=== PATIENT | female | born 1985 | race African-American/Black ===

== ENCOUNTER 2018-06-29 16:44 | Emergency (ER) | payer OTHER ==
[~2018-06-29] VITALS: Ht 157.5 cm; Wt 99.8 kg
[2018-06-29 17:02] LABS: URINE BILIRUBIN NEGATIVE (Negative); URINE BLOOD TRACE (Negative); URINE CLARITY CLEAR; URINE COLOR YELLOW; URINE GLUCOSE-RANDOM* NEGATIVE (Negative); URINE KETONES NEGATIVE (Negative); URINE LEUKOCYTES-REFLEX NEGATIVE (Negative); URINE NITRITE-REFLEX NEGATIVE (Negative); URINE PROTEIN (DIPSTICK) NEGATIVE (Negative); URINE SPECIFIC GRAVITY >= 1.030 (1.005-1.035); URINE UROBILINOGEN 0.2 E.U./dl (0.2-1.0)
[2018-06-29 18:20] LABS: ABSOLUTE NEUTROPHILS 3.6 thou/uL (1.4-8.2); BASOPHILS 1.3 % (0.0-2.0); EOSINOPHILS 2.6 % (0.0-3.0); HEMATOCRIT 34.9 % (37.0-47.0); MCHC 31.5 g/dL (28.0-37.0); MONOCYTES 7.4 % (1.0-8.0); PLATELET COUNT 518 thou/uL (150-400); POLYS 56.7 % (36.0-66.0); RBC 4.59 mil/uL (4.20-5.00); WBC 6.3 thou/uL (4.0-11.0)
[2018-06-29 18:34] LABS: CALCIUM 9.4 mg/dL (8.5-10.1); CREATININE 0.9 mg/dL (0.6-1.0); POTASSIUM 3.9 mmol/L (3.5-5.1)
[2018-06-29 18:40] LABS: ALBUMIN 3.8 g/dL (3.4-5.0); TOTAL BILIRUBIN 0.2 mg/dL (<0.1-1.0)
[2018-06-29] MEDS ORDERED: NORCO 5-325 TA1 EACH PO (21:13)
[2018-06-29] MEDS ORDERED: IBUPROFEN 600600 M1 PO (21:13)
[2018-06-29 21:44] VITALS: BP 144/78
== END 2018-06-29 21:45 | disposition home or self-care (01) ==
LOC: ER 16:44
PROVIDERS: Physician Assistant; Student in an Organized Health Care Education/Training Program
DX: N83.201 Unspecified ovarian cyst, right side (principal); Z90.710 Acquired absence of both cervix and uterus